=== PATIENT | male | born 1970 | race Caucasian/White ===

== ENCOUNTER 2024-06-18 12:58 | Outpatient (OUT) | payer OTHER, SELFPAY ==
[2024-06-18 13:57] LABS: Thyroid Stimulating Hormone 1.183 uIU/mL (0.358-3.740)
[2024-06-19 04:08] LABS: PSA, Free 0.29 ng/mL; Prostate Specific Ag 1.1 ng/mL (0.0-4.0)
== END 2024-06-18 12:59 | disposition home or self-care (01) ==
LOC: LAB 13:03
PROVIDERS: PCP Family Medicine; Visit Provider Internal Medicine Cardiovascular Disease
DX: Z12.5 Encounter for screening for malignant neoplasm of prostate (principal); Z13.29 Encounter for screening for other suspected endocrine disorder
CPT/HCPCS: 36415; 84153; 84154; 84443

== ENCOUNTER 2024-06-18 13:07 | Outpatient (OUT) | payer OTHER, SELFPAY ==
[2024-06-18 13:33] LABS: Basophils Absolute Auto 0.1 10^3/uL (0.0-0.1); Basophils Percent Auto 0.9 % (0.2-2.0); Eosinophils Absolute Auto 0.2 10^3/uL (0.0-0.7); Hematocrit 39.6 % (42.0-54.0); Immature Granulocytes Abs Auto 0.02 10^3/uL (0.00-0.03); Immature Granulocytes Pct Auto 0.3 % (0.0-0.5); Lymphocytes Absolute Auto 1.7 10^3/uL (1.2-3.8); Lymphocytes Percent Auto 22.5 % (20.5-60.0); Mean Corpuscular HGB Conc 35.4 g/dL (29.9-35.2); Mean Corpuscular Volume 90.4 fL (80.0-94.0); Mean Platelet Volume 11.3 fL (9.5-13.5); Monocytes Absolute Auto 0.8 10^3/uL (0.3-0.8); Monocytes Percent Auto 11.3 % (1.7-12.0); Neutrophils Absolute Auto 4.6 10^3/uL (1.4-6.5); Platelet Count 127 10^3/uL (150-450); Red Blood Count 4.38 10^6/uL (4.70-6.10); Red Cell Distribution Width 11.9 % (11.0-15.0); White Blood Count 7.4 10^3/uL (4.0-11.0)
[2024-06-18 13:46] LABS: Albumin Level 4.5 g/dL (3.4-5.0); Anion Gap 7.1; Calcium 9.6 mg/dL (8.5-10.1); Carbon Dioxide 31.8 mmol/L (21.0-32.0); Chloride 102 mmol/L (98-107); Estimated GFR (African America >60 (>=60); Estimated GFR (Non-African Ame >60 (>=60); Glucose 96 mg/dL (74-106); Phosphorus 3.3 mg/dL (2.6-4.7); Potassium 3.9 mmol/L (3.5-5.1); Sodium 137 mmol/L (136-145)
== END 2024-06-18 13:08 | disposition home or self-care (01) ==
LOC: LAB 13:08
PROVIDERS: PCP Family Medicine
DX: Z12.5 Encounter for screening for malignant neoplasm of prostate (principal); Z13.29 Encounter for screening for other suspected endocrine disorder; I35.0 Nonrheumatic aortic (valve) stenosis
CPT/HCPCS: 36415; 80069; 84153; 84154; 84443; 85025

== ENCOUNTER 2024-08-18 08:47 | Outpatient (OUT) | payer OTHER, SELFPAY | END 2024-08-18 08:48 | disposition home or self-care (01) | LOC: PST 08:48 | PROVIDERS: PCP Family Medicine; Visit Provider Surgery | DX: Z01.818 Encounter for other preprocedural examination (principal); Z12.11 Encounter for screening for malignant neoplasm of colon ==

== ENCOUNTER 2024-12-01 14:10 | Outpatient (RCR) | payer OTHER, SELFPAY ==
--- NOTE | 2024-10-08 | CR1_ITS ---
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
--- NOTE | 2024-10-17 09:01 | CR1_ITS ---
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
--- NOTE | 2024-11-13 07:38 | CR1_ITS ---
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
--- NOTE | 2024-12-11 11:34 | CR1_ITS ---
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
== END 2025-01-13 12:23 | disposition home or self-care (01) ==
LOC: CR 14:10
PROVIDERS: PCP Family Medicine; Visit Provider Internal Medicine Cardiovascular Disease
DX: I35.0 Nonrheumatic aortic (valve) stenosis (principal); Z95.2 Presence of prosthetic heart valve; Z95.4 Presence of other heart-valve replacement
CPT/HCPCS: 93798